=== PATIENT | female | born 1970 | race Caucasian/White ===

== ENCOUNTER 2021-11-14 23:29 | Emergency (ER) | payer BC ==
[2021-11-15] MEDS ORDERED: Morphine 4 MG/ML VIAL ONE (00:52)
[2021-11-15] MEDS ORDERED: Morphine 10 MG/ML VIAL ONE (00:57)
== END 2021-11-15 01:55 | disposition home or self-care (01) ==
LOC: ERS 23:29
DX: S42.202A Unspecified fracture of upper end of left humerus, initial encounter for closed fracture (principal); W18.30XA Fall on same level, unspecified, initial encounter
CPT/HCPCS: 96372; J2270